=== PATIENT | female | born 1935 | race Caucasian/White ===

== ENCOUNTER → 2016-07-23 | Outpatient (CLI) | payer MEDICARE, OTHER ==
[~2016-07-23] MED LIST: ACIDOPHILUS LAC1 CAP PO; ADVAIR 5001 DISK W/D PO; ALLEGRA180 MG PO; AMOXICILLIN500 M1 PO; ASPIRIN PO; ASPIRIN81 M2 PO; BENADRYL PO; COLACE PO; COLESTID1 GM PO; COMBIVENT INH14.7 GM INH; FLONASE 0.05% N16 G1; HYDROCODONE PO; HYDROCODONE-APA1 T45 PO; LORTAB 7.5-5001 TAB PO; LYRICA75 MG PO; METFORMIN HCL500 M1 PO; MICARDIS PO; MULTI-DAY VITAM1 TAB PO; MYRBETRIQ50 MG PO; NAPROSYN250 M1 PO; NEURONTIN300 MG PO; ONE DAILY WOME0.4 MG PO; OS-CAL 500 + D500 MG DOB; OYSTER CALCIUM500 MG PO; PANTOPRAZOLE SO40 MG PO; PHENERGAN25 MG PO; PLAVIX PO; POTASSIUM; POTASSIUM GLUCO99 MG PO; PRILOSEC PO; PRILOSEC20 M1; SPIRIVA18 MCG INH; SYMBICORT INH; VICODIN PO; VITAMIN C500 M1 PO; VITAMIN D31000 UNIT PO; WELCHOL625 MG PO; ZOCOR PO; ZYRTEC5 M2 PO
--- NOTE | ~2016-07-23 | CT57 ---
[facility] A Service of [facility] RADIOLOGY TEXT RESULTS PATIENT: ROHAN YOO LOCATION: [facility] : 35 UNIT #: [id number] AGE: [address]: Juan Frey SEX: F ORDER DR: [id number] [place] [id number] MR#: [id number] Acc #: [id number] NAME: ROHAN YOO : 1935 SEX: F STUDY DATE/TIME: 07/23/2016 12:31 UNIT: [facility] ROOM: STUDY DESCRIPTION: CT Chest Wo Cont Attending Physician: Juan Frey M.D. Referring Physician: Juan Frey M.D. Ordering Physician: Jayy Salas M.D. Primary Care Physician: Jayy Salas M.D. MEDICAL IMAGING REPORT This report is preliminary unless electronic signature is present. EXAM CT of the chest without contrast INDICATION Follow up pulmonary nodule. TECHNIQUE CT scan of the chest was performed without contrast. Coronal and sagittal reformatted images were obtained. This CT exam was performed with one or more of the following radiation dose reduction techniques: automatic exposure control, adjustment of mA and/or kV according to patient size, and iterative reconstruction. COMPARISON 10/06/2015 FINDINGS There is a stable 7 mm nodule within the periphery of the right lower lobe. Underlying emphysema. Stable left lower lobe micronodule on image 81. New tiny cluster of nodularity in the right middle lobe image 52. No lymphadenopathy. Coronary artery calcification. No pleural effusion. Limited imaging in the upper abdomen demonstrates a cholecystectomy. Bone windows demonstrate degenerative changes thoracic spine. IMPRESSION 1. There is a new cluster of nodularity in the right middle lobe which is probably infectious or inflammatory. 6-month followup chest CT recommended to document clearing. 2. Stable subcentimeter nodules elsewhere. 3. Emphysema. 1. Dictated by... [facility] A Service [facility] RADIOLOGY TEXT RESULTS PATIENT: ROHAN YOO LOCATION: [facility] : 35 UNIT #: [id number] AGE: [address]: Juan Frey SEX: F ORDER DR: Herbert Monte M.D. THIS IS AN ELECTRONICALLY VERIFIED REPORT Herbert Monte M.D. at 07/24/2016 7:45 AM SHERI/lucina TD: 07/23/2016 22:03 JOB #: [id number] MEDICAL IMAGING REPORT Page 1 of 1
== END | disposition home or self-care (01) ==
LOC: SCT 10:24
DX: R91.1 Solitary pulmonary nodule (principal); J43.9 Emphysema, unspecified; R91.8 Other nonspecific abnormal finding of lung field
CPT/HCPCS: 71250